=== PATIENT | male | born 1995 | race Caucasian/White ===

== ENCOUNTER 2018-01-05 21:05 | Emergency (ER) | payer OTHER ==
[~2018-01-05] VITALS: Ht 154.9 cm; Wt 113.9 kg
[2018-01-05 21:09] VITALS: BP 139/80
[2018-01-05 21:59] LABS: BASO % 0.1 % (0.0-1.0); EOS # 0.2 10*3/uL (0.0-0.4); EOS % 2.3 % (1.0-4.0); HEMATOCRIT 44.5 % (42.0-52.0); HEMOGLOBIN 14.6 g/dl (14.0-18.0); LYMPH # 1.8 10*3/uL (1.3-4.4); MEAN CELL VOLUME 91.6 fl (80.0-94.0); MEAN CORPUSCULAR HGB CONC 32.8 g/dl (33.0-37.0); MEAN PLATELET VOLUME 11.6 fl (9.6-12.3); MONO # 0.6 10*3/uL (0.1-1.0); MONO % 6.6 % (3.0-9.0); NEUT # 6.4 10*3/uL (2.3-7.9); NEUT % 70.8 % (47.0-73.0); PLATELET COUNT AUTOMATED 249 10*3/uL (130-400); RED BLOOD COUNT 4.86 10*6/uL (4.50-5.90); RED CELL DISTRI WIDTH 12.3 % (0-14.5); WHITE BLOOD COUNT 9.1 10*3/uL (4.8-10.8)
[2018-01-05 22:14] LABS: ALKALINE PHOSPHATASE 93 U/L (45-117); BUN 12 mg/dl (7-24); CHLORIDE 105 mmol/L (98-107); CREATININE 0.75 mg/dL (0.70-1.30); POTASSIUM 3.5 mmol/L (3.5-5.1); SGOT/AST 13 IU/L (3-35); SGPT/ALT 20 U/L (12-78); SODIUM 140 mmol/L (136-145); TOTAL PROTEIN 7.6 gm/dL (6.4-8.2)
[2018-01-05 22:53] LABS: BILIRUBIN NEGATIVE (NEGATIVE); BLOOD NEGATIVE (NEGATIVE); CLARITY SL CLOUDY (CLEAR); COLOR YELLOW (YELLOW); GLUCOSE NEGATIVE (NEGATIVE); KETONE NEGATIVE (NEGATIVE); LEUKO ESTERASE NEGATIVE (NEGATIVE); NITRITE NEGATIVE (NEGATIVE); SPECIFIC GRAVITY >= 1.030 (1.005-1.030); UROBILINOGEN 0.2 E.U./dl (0.2-1.0)
== END 2018-01-05 23:35 | disposition home or self-care (01) ==
LOC: ED 21:05
PROVIDERS: Physician Assistant
DX: R11.0 Nausea (principal); F17.200 Nicotine dependence, unspecified, uncomplicated

== ENCOUNTER 2019-12-13 12:39 | Emergency (ER) | payer OTHER ==
[~2019-12-13] VITALS: Ht 180.3 cm; Wt 133.8 kg
[2019-12-13 12:49] VITALS: BP 146/86
== END 2019-12-13 13:15 | disposition home or self-care (01) ==
LOC: ED 12:39
DX: R68.84 Jaw pain (principal); E66.01 Morbid (severe) obesity due to excess calories; F12.90 Cannabis use, unspecified, uncomplicated; F17.200 Nicotine dependence, unspecified, uncomplicated

== ENCOUNTER 2020-05-24 01:49 | Emergency (ER) | payer OTHER ==
[~2020-05-24] VITALS: Ht 180.3 cm; Wt 139.7 kg
[2020-05-24 01:56] VITALS: BP 155/91
== END 2020-05-24 02:15 | disposition home or self-care (01) ==
LOC: ED 01:49
DX: K02.9 Dental caries, unspecified (principal); K08.89 Other specified disorders of teeth and supporting structures

== ENCOUNTER 2022-03-08 12:08 | Emergency (ER) | payer OTHER ==
[2022-03-08 12:12] VITALS: BP 132/79
== END 2022-03-08 13:48 | disposition home or self-care (01) ==
LOC: ED 12:08
DX: U07.1 COVID-19 (principal)

== ENCOUNTER → 2022-03-13 | Outpatient (CLI) | payer OTHER | END | disposition home or self-care (01) | LOC: COVID19 11:15 | PROVIDERS: ATTEND Internal Medicine | DX: U07.1 COVID-19 (principal) ==

== ENCOUNTER 2022-05-18 13:30 | Emergency (ER) | payer OTHER ==
[~2022-05-18] VITALS: Ht 180.3 cm; Wt 117.9 kg
[2022-05-18 14:11] VITALS: BP 125/68
[2022-05-18] MEDS ORDERED: NAPROXEN250 MG PO (14:35)
[2022-05-18] MEDS ORDERED: SEPTDS PO (14:35)
[2022-05-18] MEDS ORDERED: TYLENOL325 M1 PO (14:35)
== END 2022-05-18 14:37 | disposition home or self-care (01) ==
LOC: ED 13:30
DX: L05.01 Pilonidal cyst with abscess (principal)

== ENCOUNTER 2022-08-18 11:47 | Emergency (ER) | payer OTHER ==
[~2022-08-18 11:47] MED LIST: NAPROXEN250 MG PO; SEPTDS PO; TYLENOL325 M1 PO
== END 2022-08-18 12:40 | disposition left against medical advice (07) ==
LOC: ED 11:47
DX: R11.10 Vomiting, unspecified (principal); Z53.21 Procedure and treatment not carried out due to patient leaving prior to being seen by health care provider

== ENCOUNTER 2022-08-27 18:27 | Emergency (ER) | payer OTHER ==
[~2022-08-27] VITALS: Wt 108.9 kg
[2022-08-27 18:31] VITALS: BP 123/65
[2022-08-27] MEDS ORDERED: PREDNISONE10 MG PO (19:31)
== END 2022-08-27 20:28 | disposition home or self-care (01) ==
LOC: ED 18:27
DX: K12.2 Cellulitis and abscess of mouth (principal); F17.200 Nicotine dependence, unspecified, uncomplicated

== ENCOUNTER 2022-09-21 16:33 | Emergency (ER) | payer OTHER ==
[~2022-09-21] VITALS: Ht 180.3 cm; Wt 108.9 kg
[~2022-09-21 16:33] MED LIST changes: +PREDNISONE10 MG PO
[2022-09-21 16:38] VITALS: BP 135/62
== END 2022-09-21 17:02 | disposition home or self-care (01) ==
LOC: ED 16:33
DX: S16.1XXA Strain of muscle, fascia and tendon at neck level, initial encounter (principal); X58.XXXA Exposure to other specified factors, initial encounter; Y93.89 Activity, other specified; Y92.89 Other specified places as the place of occurrence of the external cause; Y99.8 Other external cause status

== ENCOUNTER 2022-10-04 11:50 | Emergency (ER) | payer OTHER ==
[~2022-10-04] VITALS: Ht 180.3 cm; Wt 108.9 kg
[2022-10-04 12:03] VITALS: BP 123/68
[2022-10-04] MEDS ORDERED: CETIRIZINE10 MG PO (12:10)
== END 2022-10-04 12:22 | disposition home or self-care (01) ==
LOC: ED 11:50
DX: B34.9 Viral infection, unspecified (principal)

== ENCOUNTER 2022-12-02 12:33 | Emergency (ER) | payer OTHER ==
[~2022-12-02] VITALS: Ht 180.3 cm; Wt 108.9 kg
[~2022-12-02 12:33] MED LIST changes: +CETIRIZINE10 MG PO
[2022-12-02 12:44] VITALS: BP 119/52
== END 2022-12-02 13:41 | disposition home or self-care (01) ==
LOC: ED 12:33
DX: M70.62 Trochanteric bursitis, left hip (principal); M76.61 Achilles tendinitis, right leg; F32.A Depression, unspecified

== ENCOUNTER 2023-03-08 14:01 | Emergency (ER) | payer OTHER ==
[~2023-03-08] VITALS: Wt 108.9 kg
[2023-03-08 14:12] VITALS: BP 125/77
[2023-03-08] MEDS ORDERED: Motrin,Rufen800 MG PO (17:21)
== END 2023-03-08 17:21 | disposition home or self-care (01) ==
LOC: ED 14:01
DX: S16.1XXA Strain of muscle, fascia and tendon at neck level, initial encounter (principal); R51.9 Headache, unspecified; Z79.899 Other long term (current) drug therapy; R10.9 Unspecified abdominal pain; X58.XXXA Exposure to other specified factors, initial encounter; Y93.89 Activity, other specified; Y92.89 Other specified places as the place of occurrence of the external cause; Y99.8 Other external cause status